=== PATIENT | female | born 1945 | race Caucasian/White ===

== ENCOUNTER 2020-07-13 08:05 | Inpatient (IN) | payer MEDICARE, BC ==
[~2020-07-13] VITALS: Ht 167.6 cm; Wt 81.1 kg
[~2020-07-13 08:05] MED LIST: ASPI81TA45 PO; ATOR40TA78 PO; CARV3.1212 PO; DULO40CA2 PO; FURO20TA3 PO; GABA300C10 PO; GLIP10TA13 PO; HYDR-3653 PO; HYDR-826 PO; INSU100C5 SQ-INSULIN; INSU100V8 SQ; LATA7.5D OP; LIRA0.6P SQ; METF500T17 PO; METO5TAB57 PO; ROPI1TAB4 PO
--- NOTE | 2020-07-13 08:13 | NUR ---
PT ON ALL ROOM MONITORING, RT AND ERP AT BS. VENT SETTINGS 12, 450, 100%, 5 PEEP. ETT 7.0, 23 AT GUM. IN ROUTE, KETAMINE 200MG GIVEN FOR SEDATION D/T HYPOTENSION. PER CAREFLIGHT, FUR PULLER PROPOFOL AT 20, 100 MCG FENTANYL IVP GIVEN LEADING TO BP 94/54. URINE COLLECTED FROM [place], PURULENT CLOUDY PALE URINE OBSERVED.
[2020-07-13] MEDS ORDERED: CEFTRIAXONE 2 GM in DEXTROSE 5% 50 ML IVPB ONE (08:30)
--- NOTE | 2020-07-13 08:30 | NUR ---
PREPARE FOR CENTRAL LINE, CART IN ROOM. VECURONIUM 7MG GIVEN IV PER VO DR AKHTAR DUE TO STIFFNESS TO L NECK. ROCEPHIN INFUSING.
--- NOTE | 2020-07-13 08:33 | NUR ---
ROCEPHIN STOPPED. ERP TO ORDER BC X 2 PRIOR TO START.
[2020-07-13] MEDS ORDERED: PROPOFOL 100 ML IV PRN ×2 (09:00→11:30)
[2020-07-13] MEDS ORDERED: VECURONIUM 10 MG IVPush ONE (09:00)
[2020-07-13 09:03] LABS: MICROSCOPIC INDICATED
--- NOTE | 2020-07-13 09:07 | NUR ---
PCXR RESULTED. NG TO STOMACH-NGT TO LIS, BROWN DRAINAGE. LAB IN TO DRAW, BC X 2 COMPLETED. ROCEPHIN RESTARTED. PROPOFOL INCREASED TO 10MCG/KG/MIN. PT HYPERTENSIVE AT THIS TIME.
--- NOTE | 2020-07-13 09:28 | NUR ---
LATE NOTE PER CAREFLIGHT, PT'S STATES HE FOUND PT ON GROUND APPROX 0500 THIS MORNING. PT HAD SLEPT IN RECLINER IN DIFFERENT ROOM LAST NIGHT. LAST KNOWN NORMAL AT 1900 07/12. EMS REPORTED SEIZURE LIKE ACTIVITY ON R SIDE WITH DURATION SEVERAL MINUTES. L SIDE FLACCID. PEDIATRIC IO PLACED IN FIELD.
--- NOTE | 2020-07-13 09:35 | NUR ---
REVIEW OF CHART, PER DOCUMENTATION FROM [facility], PT RECEIVED 1LITER NS FROM [facility]. PER SEPTIC SHOCK PROTOCOL, WT BASED IVF BOLUSES TO =[id number]. 2ND LITER NS INFUSING NOW. PINK SHEET STARTED.
[2020-07-13] MEDS ORDERED: SODIUM CHLORIDE FLUSH 10ML SYR IVF PRN (10:00)
[2020-07-13] MEDS ORDERED: DULA0.75 SC (10:18)
[2020-07-13] MEDS ORDERED: HYDR-3248 PO (10:18)
[2020-07-13] MEDS ORDERED: ESTRADIOL VG (10:18)
[2020-07-13] MEDS ORDERED: LEVO50TA5 PO (10:18)
[2020-07-13] MEDS ORDERED: NALO12.52 PO (10:18)
[2020-07-13] MEDS ORDERED: MELO7.5T31 PO (10:18)
--- NOTE | 2020-07-13 10:33 | NUR ---
REPORT TO CCU, PT READY FOR TRANSPORT WHEN RT AVAILABLE.
[2020-07-13] MEDS ORDERED: SODIUM CHLORIDE 0.9% 1,000ML IVBOLUS ONE (11:00)
[2020-07-13] MEDS: SODIUM CHLORIDE FLUSH 10ML SYR IVF SCH ×3 (11:30→19:54)
[2020-07-13] MEDS ORDERED: DEXTROSE 4 GM TAB.CHEW PO PRN ×2 (11:30)
[2020-07-13] MEDS ORDERED: LIDOCAINE-MPF 1%, 2ML ENDO PRN (11:30)
[2020-07-13] MEDS ORDERED: NOREPINEPHRINE 8 MG in SODIUM CHLORIDE 0.9% 242 ML IV PRN (11:30)
[2020-07-13] MEDS ORDERED: GLUCAGON 1 MG IM PRN ×2 (11:30)
[2020-07-13] MEDS ORDERED: PHARMACY MAY ADJ FOR RENAL FX MC SCH (11:30)
[2020-07-13] MEDS ORDERED: FAMOTIDINE 20 MG TABLET PO SCH (11:30)
[2020-07-13] MEDS ORDERED: DEXTROSE 50%, 50ML SYRINGE IVPush PRN ×2 (11:30)
[2020-07-13] MEDS ORDERED: FENTANYL PF 100 MCG/2ML IVPush PRN (11:30)
[2020-07-13] MEDS ORDERED: LABETALOL 5MG/ML, 20ML IVPush PRN (11:30)
[2020-07-13 12:34] LABS: CREATINE KINASE, TOTAL 470 U/L (26-192); TRIGLYCERIDES 186 mg/dL (50-200); TROPONIN I 0.024 ng/mL (0.000-0.045)
[2020-07-13] MEDS ORDERED: SUCCINYLCHOLINE 20 MG/ML, 10ML ONE (12:55)
[2020-07-13] MEDS ORDERED: PROPOFOL 10 MG/ML, 100ML IV ONE (12:55)
[2020-07-13] MEDS ORDERED: VECURONIUM 10 MG ONE (12:55)
[2020-07-13] MEDS ORDERED: ETOMIDATE 20 MG/10 ML ONE (12:55)
[2020-07-13] MEDS: FAMOTIDINE 20 MG TABLET PO SCH ×2 (14:00→20:15)
[2020-07-13] MEDS: CEFTRIAXONE 1,000 MG in DEXTROSE 5% 50 ML IVPB SCH (14:00)
[2020-07-13] MEDS: INSULIN LISPRO 100 UNITS/ML, PEN SQ-INSULIN SCH ×2 (16:29→20:16)
[2020-07-13 17:31] LABS: TROPONIN I 0.026 ng/mL (0.000-0.045)
[2020-07-13] MEDS: ENOXAPARIN 40 MG/0.4 ML SQ SCH (20:16)
[2020-07-13 23:56] LABS: TROPONIN I < 0.015 ng/mL (0.000-0.045)
[2020-07-14 03:54] LABS: BASOPHILS % (AUTO) 1 % (0-1); EOSINOPHILS % (AUTO) 1 % (1-7); LYMPHOCYTES % (AUTO) 16 % (22-44); MEAN CORPUSCULAR HEMOGLOBIN 26.6 pg (27.0-34.8); MEAN CORPUSCULAR HGB CONC 32.6 g/dL (32.4-35.8); MEAN PLATELET VOLUME 8.1 fL (7.4-10.4); MONOCYTES % (AUTO) 5 % (2-9); NEUTROPHILS % (AUTO) 78 % (42-75); PLATELET COUNT 172 x10^3/uL (130-400); RED BLOOD COUNT 3.57 x10^6/uL (3.82-5.3); RED CELL DISTRIBUTION WIDTH 16.8 % (9.6-15.2)
[2020-07-14 04:04] LABS: ANION GAP 7 mmol/L (5-15); CALCIUM 7.9 mg/dL (8.5-10.1); CHLORIDE 112 mmol/L (98-107); CREATININE 0.66 mg/dL (0.55-1.02)
[2020-07-14] MEDS ORDERED: LEVOTHYROXINE 100 MCG INJ IVPush SCH (06:00)
[2020-07-14] MEDS ORDERED: POTASSIUM CHLORIDE 40 MEQ in SODIUM CHLORIDE 0.9% 100 ML IV ONE (07:00)
[2020-07-14] MEDS ORDERED: MAGNESIUM SULFATE PMX 2GM/50ML 50 ML IV ONE ×2 (07:00→10:00)
[2020-07-14] MEDS ORDERED: SODIUM CHLORIDE 0.9%, 500ML IVBOLUS ONE (07:30)
[2020-07-14] MEDS: INSULIN LISPRO 100 UNITS/ML, PEN SQ-INSULIN SCH ×4 (08:20→21:00)
[2020-07-14] MEDS ORDERED: FAMOTIDINE 20 MG/2 ML IVPush SCH (09:30)
[2020-07-14] MEDS: SODIUM CHLORIDE FLUSH 10ML SYR IVF SCH ×4 (09:41→22:03)
[2020-07-14] MEDS ORDERED: SODIUM CHLORIDE 0.9% 1,000ML IVBOLUS ONE ×2 (10:00→15:00)
[2020-07-14] MEDS ORDERED: BUPR1PAT20 TD (11:38)
--- NOTE | 2020-07-14 12:11 | NUR ---
Start trickle feeds Vital HP goal 20 ml/hr advance per MD orders
[2020-07-14] MEDS: CEFTRIAXONE 1,000 MG in DEXTROSE 5% 50 ML IVPB SCH (14:37)
[2020-07-14] MEDS ORDERED: FENTANYL PF 100 MCG/2ML IVPush PRN (18:30)
[2020-07-14] MEDS: ATORVASTATIN 40 MG TABLET PO SCH (22:01)
[2020-07-14] MEDS: ENOXAPARIN 40 MG/0.4 ML SQ SCH (22:02)
[2020-07-14] MEDS: LATANOPROST OPHTH 0.005%, 2.5ML EACHEYE SCH (22:36)
[2020-07-15 04:57] LABS: BASOPHILS % (AUTO) 0 % (0-1); EOSINOPHILS % (AUTO) 3 % (1-7); LYMPHOCYTES % (AUTO) 20 % (22-44); MEAN CORPUSCULAR HEMOGLOBIN 27.4 pg (27.0-34.8); MEAN CORPUSCULAR HGB CONC 33.6 g/dL (32.4-35.8); MEAN PLATELET VOLUME 8.2 fL (7.4-10.4); MONOCYTES % (AUTO) 4 % (2-9); NEUTROPHILS % (AUTO) 72 % (42-75); PLATELET COUNT 155 x10^3/uL (130-400); RED BLOOD COUNT 3.32 x10^6/uL (3.82-5.3); RED CELL DISTRIBUTION WIDTH 16.7 % (9.6-15.2)
[2020-07-15 05:06] LABS: CALCIUM 8.2 mg/dL (8.5-10.1); CHLORIDE 112 mmol/L (98-107)
[2020-07-15 05:12] LABS: ALANINE AMINOTRANSFERASE 17 U/L (12-78); ALBUMIN 2.4 g/dL (3.4-5.0); ALKALINE PHOSPHATASE 67 U/L (45-117); ANION GAP 7 mmol/L (5-15); BILIRUBIN,TOTAL 0.4 mg/dL (0.2-1.0); CREATININE 0.48 mg/dL (0.55-1.02)
[2020-07-15] MEDS: ASPIRIN 81 MG TABLET EC PO SCH (05:44)
[2020-07-15] MEDS: SODIUM CHLORIDE FLUSH 10ML SYR IVF SCH ×3 (07:30→21:11)
[2020-07-15] MEDS: INSULIN LISPRO 100 UNITS/ML, PEN SQ-INSULIN SCH ×4 (08:06→20:10)
[2020-07-15] MEDS ORDERED: FAMOTIDINE 20 MG/2 ML IVPush SCH (09:00)
[2020-07-15] MEDS ORDERED: MAGNESIUM SULFATE PMX 2GM/50ML 50 ML IVPB ONE (10:00)
[2020-07-15] MEDS: LEVOTHYROXINE 50 MCG TABLET PO SCH (10:01)
[2020-07-15] MEDS: POTASSIUM CHLORIDE 20 MEQ PACKET PO SCH ×3 (10:52→22:34)
[2020-07-15] MEDS: CEFTRIAXONE 1,000 MG in DEXTROSE 5% 50 ML IVPB SCH (13:35)
[2020-07-15 17:52] VITALS: BP 165/85
[2020-07-15 19:50] VITALS: BP 193/87
[2020-07-15 20:43] VITALS: BP 148/85
[2020-07-15] MEDS: LATANOPROST OPHTH 0.005%, 2.5ML EACHEYE SCH (21:10)
[2020-07-15] MEDS: ENOXAPARIN 40 MG/0.4 ML SQ SCH (21:11)
[2020-07-15] MEDS: ATORVASTATIN 40 MG TABLET PO SCH (21:11)
[2020-07-16 01:14] VITALS: BP 103/72
[2020-07-16] MEDS: POTASSIUM CHLORIDE 20 MEQ PACKET PO SCH (04:45)
[2020-07-16] MEDS: ASPIRIN 81 MG TABLET EC PO SCH (05:41)
[2020-07-16 07:45] VITALS: BP 167/73
[2020-07-16] MEDS: LEVOTHYROXINE 50 MCG TABLET PO SCH (08:05)
[2020-07-16] MEDS: INSULIN LISPRO 100 UNITS/ML, PEN SQ-INSULIN SCH ×4 (08:06→21:17)
[2020-07-16] MEDS: SODIUM CHLORIDE FLUSH 10ML SYR IVF SCH ×2 (08:07→21:17)
[2020-07-16 09:45] LABS: BASOPHILS % (AUTO) 0 % (0-1); EOSINOPHILS % (AUTO) 3 % (1-7); LYMPHOCYTES % (AUTO) 26 % (22-44); MEAN PLATELET VOLUME 8.3 fL (7.4-10.4); MONOCYTES % (AUTO) 6 % (2-9); NEUTROPHILS % (AUTO) 65 % (42-75); PLATELET COUNT 203 x10^3/uL (130-400); RED BLOOD COUNT 3.96 x10^6/uL (3.82-5.3)
[2020-07-16 09:48] LABS: ANION GAP 8 mmol/L (5-15); CALCIUM 8.9 mg/dL (8.5-10.1); CHLORIDE 109 mmol/L (98-107); CREATININE 0.49 mg/dL (0.55-1.02)
[2020-07-16] MEDS: GUAIFENESIN/DM 200-20MG, 10ML UDC PO PRN (12:08)
[2020-07-16] MEDS: CEFTRIAXONE 1,000 MG in DEXTROSE 5% 50 ML IVPB SCH (13:02)
[2020-07-16 13:04] VITALS: BP 105/71
[2020-07-16 21:11] VITALS: BP 122/66
[2020-07-16] MEDS: CARVEDILOL 3.125 MG TABLET PO SCH (21:16)
[2020-07-16] MEDS: ENOXAPARIN 40 MG/0.4 ML SQ SCH (21:16)
[2020-07-16] MEDS: ATORVASTATIN 40 MG TABLET PO SCH (21:16)
[2020-07-16] MEDS: LATANOPROST OPHTH 0.005%, 2.5ML EACHEYE SCH (21:16)
[2020-07-17 01:17] VITALS: BP 138/66
[2020-07-17] MEDS: ASPIRIN 81 MG TABLET EC PO SCH (05:40)
[2020-07-17 06:18] LABS: BASOPHILS % (AUTO) 1 % (0-1); EOSINOPHILS % (AUTO) 1 % (1-7); LYMPHOCYTES % (AUTO) 28 % (22-44); MEAN CORPUSCULAR HEMOGLOBIN 26.9 pg (27.0-34.8); MEAN CORPUSCULAR HGB CONC 33.3 g/dL (32.4-35.8); MEAN PLATELET VOLUME 8.6 fL (7.4-10.4); MONOCYTES % (AUTO) 7 % (2-9); NEUTROPHILS % (AUTO) 64 % (42-75); PLATELET COUNT 276 x10^3/uL (130-400); RED BLOOD COUNT 4.24 x10^6/uL (3.82-5.3)
[2020-07-17 06:32] LABS: ANION GAP 10 mmol/L (5-15); CALCIUM 9.6 mg/dL (8.5-10.1); CHLORIDE 110 mmol/L (98-107); CREATININE 0.66 mg/dL (0.55-1.02)
[2020-07-17] MEDS: INSULIN LISPRO 100 UNITS/ML, PEN SQ-INSULIN SCH ×4 (07:00→20:11)
[2020-07-17 07:13] VITALS: BP 150/74
[2020-07-17] MEDS: LEVOTHYROXINE 50 MCG TABLET PO SCH (08:01)
[2020-07-17] MEDS: SODIUM CHLORIDE FLUSH 10ML SYR IVF SCH ×2 (08:01→20:12)
[2020-07-17] MEDS: CARVEDILOL 3.125 MG TABLET PO SCH ×2 (08:01→20:10)
[2020-07-17] MEDS: GUAIFENESIN/DM 200-20MG, 10ML UDC PO PRN ×2 (08:01→16:28)
[2020-07-17] MEDS: CEFTRIAXONE 1,000 MG in DEXTROSE 5% 50 ML IVPB SCH (11:25)
[2020-07-17 13:11] VITALS: BP 111/71
[2020-07-17 20:06] VITALS: BP 138/64
[2020-07-17] MEDS: ATORVASTATIN 40 MG TABLET PO SCH (20:10)
[2020-07-17] MEDS: LATANOPROST OPHTH 0.005%, 2.5ML EACHEYE SCH (20:11)
[2020-07-17] MEDS: ENOXAPARIN 40 MG/0.4 ML SQ SCH (20:11)
[2020-07-18 00:07] VITALS: BP 106/55
[2020-07-18] MEDS: ASPIRIN 81 MG TABLET EC PO SCH (05:05)
[2020-07-18 05:42] LABS: BASOPHILS % (AUTO) 0 % (0-1); EOSINOPHILS % (AUTO) 2 % (1-7); LYMPHOCYTES % (AUTO) 28 % (22-44); MEAN CORPUSCULAR HEMOGLOBIN 27.1 pg (27.0-34.8); MEAN CORPUSCULAR HGB CONC 33.2 g/dL (32.4-35.8); MEAN PLATELET VOLUME 8.5 fL (7.4-10.4); MONOCYTES % (AUTO) 7 % (2-9); NEUTROPHILS % (AUTO) 63 % (42-75); PLATELET COUNT 277 x10^3/uL (130-400); RED BLOOD COUNT 3.94 x10^6/uL (3.82-5.3)
[2020-07-18 05:56] LABS: ANION GAP 7 mmol/L (5-15); CALCIUM 8.6 mg/dL (8.5-10.1); CHLORIDE 111 mmol/L (98-107); CREATININE 0.63 mg/dL (0.55-1.02)
[2020-07-18] MEDS: INSULIN LISPRO 100 UNITS/ML, PEN SQ-INSULIN SCH ×3 (07:00→16:37)
[2020-07-18] MEDS: POTASSIUM CHLORIDE 20 MEQ TAB.ER.PRT PO SCH ×2 (08:51→16:37)
[2020-07-18] MEDS: CARVEDILOL 3.125 MG TABLET PO SCH (08:51)
[2020-07-18] MEDS: LEVOTHYROXINE 50 MCG TABLET PO SCH (08:54)
[2020-07-18] MEDS: SODIUM CHLORIDE FLUSH 10ML SYR IVF SCH (08:55)
[2020-07-18 09:11] VITALS: BP 103/67
[2020-07-18] MEDS: CEFTRIAXONE 1,000 MG in DEXTROSE 5% 50 ML IVPB SCH (11:29)
[2020-07-18 12:30] VITALS: BP 122/68
[2020-07-18] MEDS: GUAIFENESIN/DM 200-20MG, 10ML UDC PO PRN ×2 (12:34→17:03)
[2020-07-18] MEDS ORDERED: CEFD300C37 PO (17:42)
[2020-07-18] MEDS ORDERED: PRED10TA PO (17:42)
[2020-07-18] MEDS ORDERED: LACT1TAB13 PO ×2 (17:42)
== END 2020-07-18 20:44 | disposition home or self-care (01) | DRG 871 ==
LOC: ED 09:50 → CCU 10:45 → SUATTDRO 10:45 → CCU 20:50 → ICU 07-14 06:56 → 3N 07-15 17:37
PROVIDERS: ADMIT Internal Medicine; ATTEND Internal Medicine
PROC: 0T9B70Z Drainage of Bladder with Drainage Device, Via Natural or Artificial Opening (ICD-10-PCS; principal; 2020-07-13)
PROC: 5A1945Z Respiratory Ventilation, 24-96 Consecutive Hours (ICD-10-PCS; 2020-07-13)
PROC: 0BH17EZ Insertion of Endotracheal Airway into Trachea, Via Natural or Artificial Opening (ICD-10-PCS; 2020-07-13)
DX: A41.9 Sepsis, unspecified organism (principal); G93.41 Metabolic encephalopathy; J96.01 Acute respiratory failure with hypoxia; R65.21 Severe sepsis with septic shock; I50.42 Chronic combined systolic (congestive) and diastolic (congestive) heart failure; Z99.11 Dependence on respirator [ventilator] status; N10 Acute pyelonephritis; E03.9 Hypothyroidism, unspecified; E11.42 Type 2 diabetes mellitus with diabetic polyneuropathy; E11.65 Type 2 diabetes mellitus with hyperglycemia; E78.5 Hyperlipidemia, unspecified; I11.0 Hypertensive heart disease with heart failure; E83.42 Hypomagnesemia; H40.9 Unspecified glaucoma; B96.1 Klebsiella pneumoniae [K. pneumoniae] as the cause of diseases classified elsewhere; R56.9 Unspecified convulsions; I07.1 Rheumatic tricuspid insufficiency; E87.6 Hypokalemia; H81.09 Meniere's disease, unspecified ear; J45.909 Unspecified asthma, uncomplicated; M19.90 Unspecified osteoarthritis, unspecified site; R29.6 Repeated falls; Z90.710 Acquired absence of both cervix and uterus; Z98.82 Breast implant status; Z86.718 Personal history of other venous thrombosis and embolism; Z88.1 Allergy status to other antibiotic agents; Z88.5 Allergy status to narcotic agent; Z88.8 Allergy status to other drugs, medicaments and biological substances; Z91.011 Allergy to milk products; R53.81 Other malaise
CPT/HCPCS: 36415; 36600; 71045; 80048; 80053; 81001; 82550; 82803; 82962; 83605; 83735; 84443; 84478; 84484; 85025; 87040; 87070; 87077; 87081; 87086; 87186; 87205; 93005; 93306; 94002; 94003; 95819; 96365; 96366; 99291; G0378; J0696; J1650; J2704; J3480; J0330; J1815; J3475; J7030; J7040; J7512